=== PATIENT | male | born 1970 | race Caucasian/White ===

== ENCOUNTER 2017-09-06 16:49 | Emergency (ER) | payer BC, OTHER ==
[2017-09-06] MEDS ORDERED: HYDROmorphone 1 MG/ML SYRINGE IM STA (17:19)
--- NOTE | 2017-09-06 17:21 | ED Physician Documentation ---
PD HPI MAJOR TRAUMA - Stated complaint Stated Complaint: SHOULDER/BACK INJURY - Chief complaint Chief Complaint: Ext Problem - History obtained from History obtained from: Patient - History of Present Illness Mechanism of injury: Other (He works construction, self-employed. He was up on scaffolding, he estimates 10-12 feet and fell, the first thing that the ground was the area of his left shoulder blade and he has severe pain there and also low back pain. He denies head or neck injury. No other significant injuries.) Review of Systems Constitutional: reports: Reviewed and negative Cardiac: denies: Chest pain / pressure, Palpitations Respiratory: denies: Dyspnea, Cough PD PAST MEDICAL HISTORY - Present Medications Home Medications: Ambulatory Orders Medication Instructions Recorded Confirmed Oxycodone HCl/Acetaminophen 1 - 2 tab PO Q4H PRN #20 tablet 09/06/17 [Percocet 5-325 mg Tablet] - Allergies Allergies/Adverse Reactions: Allergies Allergy/AdvReac Type Severity Reaction Status Date / Time No Known Drug Allergies Allergy Verified 09/06/17 17:28 PD ED PE NORMAL - Vitals Vital signs reviewed: Yes - General General: Alert and oriented X 3, Other (Uncomfortable, winces with motion) - HEENT HEENT: PERRL, EOMI - Neck Neck: Supple, no meningeal sign, No bony TTP - Cardiac Cardiac: RRR, No murmur, Other (Tender to the superior and inferior scapula on left, also the lower ribs laterally, no abdominal tenderness.) - Respiratory Respiratory: No respiratory distress, Clear bilaterally - Abdomen Abdomen: Soft, Non tender - Back Back: No CVA TTP, No spinal TTP - Derm Derm: Normal color, Warm and dry - Extremities Extremities: No edema, No calf tenderness / cord - Neuro Neuro: Alert and oriented X 3, Normal speech - Psych Psych: Normal mood, Normal affect Results - Vitals Vitals: Vital Signs - 24 hr 09/06/17 17:01 Temperature 36.5 C Heart Rate 78 Respiratory 18 Rate Blood Pressure 146/99 H O2 Saturation 100 Oxygen O2 Source Room air - Rads (name of study) CT Cspine/Chest/Lumbar Radiology: EMP read contemporaneously (Cspine is neg, Chest with Left posterior ninth and 10th rib frxs, and single column uper endplate L3 compression frx.) PD MEDICAL DECISION MAKING - ED course ED course: 47-year-old gentleman with fall from height, imaging demonstrates 2 rib fractures and L3 compression fracture, the images were sent to [facility] in case discussed by phone with Dr. Noe, the neurosurgery attending who felt that conservative care in an LSO back brace for comfort was sufficient. Departure - Departure Disposition: 01 Home, Self Care Clinical Impression: Fall from height of greater than 3 feet Lumbar compression fracture Qualifiers: Encounter type: sequela Lumbar vertebra fracture level: L3 Fracture type: closed Qualified Code(s): S32.030S - Wedge compression fracture of third lumbar vertebra, sequela Fracture of rib of left side Qualifiers: Encounter type: initial encounter Rib fracture type: single rib Fracture type: closed Qualified Code(s): S22.32XA - Fracture of one rib, left side, initial encounter for closed fracture Condition: Good Record reviewed to determine appropriate education?: Yes Instructions: ED Fx Rib, ED Fx Comp Vertebral Prescriptions: Oxycodone HCl/Acetaminophen [Percocet 5-325 mg Tablet] 1 - 2 tab PO Q4H PRN #20 tablet PRN Reason: Pain Comments: Wear the splint for comfort when up and around, you do not need to wear in bed or while showering. [facility] should contact you to arrange a follow-up appointment in 2 weeks, if you have not heard from them in a week, call them at [phone]. Your blood pressure was elevated today on check into the emergency department. This does not mean that you have hypertension, it is a common phenomenon to come to the emergency department and have elevated blood pressure. I recommend that you see your primary care physician within the week to have it rechecked when you are feeling better. Do not drink or drive while taking narcotic pain medication. Note that many narcotic pain relievers also contain Tylenol/acetaminophen. Please ensure that your total dose of acetaminophen from all sources does not exceed 3 g (3000 mg) per day. You may get constipated while on this medication. Take a stool softener such as Colace twice a day while you are on it. Also add an [id number] laxative such as senna or MiraLAX on any day that you do not have a bowel movement. If you received a narcotic pain medication or sedative while in the emergency department, do not drive for the next 24 hours.
[2017-09-06] MEDS ORDERED: HYDROmorphone 1 MG/ML SYRINGE ONE (17:34)
--- NOTE | 2017-09-06 18:44 | CT Preliminary Report ---
Exam: CT CERVICAL SPINE W/O IMPRESSION: Normal cervical spine CT. [facility] SITE ID: [id number]
--- NOTE | 2017-09-06 18:46 | CT Report ---
EXAM: CT CERVICAL SPINE WITHOUT CONTRAST DATE: 09/06/2017 06:24 PM. HISTORY: Fall, pain. COMPARISONS: None. TECHNIQUE: Thin-section axial images were acquired of the cervical spine without contrast. Post-proce ssing: Coronal and sagittal reformats. Other: None. In accordance with CT protocol optimization, one or more of the following dose reduction techniques w ere utilized for this exam: automated exposure control, adjustment of mA and/or KV based on patient s ize, or use of iterative reconstructive technique. FINDINGS: Alignment: Normal. No scoliosis or spondylolisthesis. Bones: No fracture or bone lesion. Interspace Levels/Facets: Disk spaces well-preserved. No degenerative changes. Musculature: Unremarkable. Other: The paravertebral and prevertebral soft tissues are unremarkable. The lung apices are clear. IMPRESSION: Normal cervical spine CT. [facility] Referring Provider Line: [phone] SITE ID: [id number]
--- NOTE | 2017-09-06 18:48 | CT Preliminary Report ---
Exam: CT CHEST W/O IMPRESSION: Left posterior ninth and 10th rib fractures. [facility] SITE ID: [id number]
--- NOTE | 2017-09-06 18:50 | CT Report ---
EXAM: CT CHEST EXAM DATE: 09/06/2017 06:24 PM. CLINICAL HISTORY: Fall, pain. COMPARISONS: None. TECHNIQUE: Routine helical CT imaging was performed through the chest. IV contrast: None. Reconstruct ions: Coronal and sagittal. In accordance with CT protocol optimization, one or more of the following dose reduction techniques w ere utilized for this exam: automated exposure control, adjustment of mA and/or KV based on patient s ize, or use of iterative reconstructive technique. FINDINGS: Lungs/Pleura: Clear. Minimal localized pleural thickening in the left posterior base. No effusion or pneumothorax. Mediastinum: Normal heart size. No pericardial effusion. No coronary artery calcifications. No lympha denopathy. Bones: Posterior left ninth and 10th rib fractures. Visualized Abdomen: Unremarkable. Other: None. IMPRESSION: Left posterior ninth and 10th rib fractures. [facility] Referring Provider Line: [phone] SITE ID: [id number]
--- NOTE | 2017-09-06 18:52 | CT Preliminary Report ---
Exam: CT LUMBAR SPINE W/O IMPRESSION: Single column upper endplate L3 compression fracture. [facility] SITE ID: [id number]
--- NOTE | 2017-09-06 18:55 | CT Report ---
EXAM: CT LUMBAR SPINE WITHOUT CONTRAST EXAM DATE: 09/06/2017 06:24 PM. CLINICAL HISTORY: Fall, pain. COMPARISONS: None. TECHNIQUE: Thin-section axial images were acquired of the lumbar spine from T12 to S1 without contras t. Post-processing: Coronal and sagittal reformats. Other: None. In accordance with CT protocol optimization, one or more of the following dose reduction techniques w ere utilized for this exam: automated exposure control, adjustment of mA and/or KV based on patient s ize, or use of iterative reconstructive technique. FINDINGS: Alignment: Normal. No scoliosis or spondylolisthesis. Bones: 5 lumbar vertebrae. Comminuted fracture of anterior L3 endplate. No involvement of intermediat e or posterior columns. Otherwise unremarkable. Disk Levels/Facets: Disk spaces well preserved. Mild diffuse disk bulges at L2-L3, L3-L4, and L4-L5. Musculature: Unremarkable. Other: The visualized retroperitoneum is unremarkable. IMPRESSION: Single column upper endplate L3 compression fracture. [facility] Referring Provider Line: [phone] SITE ID: [id number]
[2017-09-06 20:28] VITALS: BP 135/93
== END 2017-09-06 20:34 | disposition home or self-care (01) ==
LOC: ED 16:49
DX: S32.030A Wedge compression fracture of third lumbar vertebra, initial encounter for closed fracture (principal); S22.42XA Multiple fractures of ribs, left side, initial encounter for closed fracture; W12.XXXA Fall on and from scaffolding, initial encounter; Y92.69 Other specified industrial and construction area as the place of occurrence of the external cause; Y99.0 Civilian activity done for income or pay
CPT/HCPCS: 71250; 72125; 72131; 96372; 99283; 99284; J1170